=== PATIENT | female | born 1970 | race Caucasian/White ===

== ENCOUNTER → 2021-01-19 | Outpatient (CLI) | payer MEDICARE ==
[~2021-01-19] MED LIST: ADVIL200 M1 PO; ALLEGRA ALLERG180 MG PO; AZITHROMYCIN500 MG PO; COLACE 100MG C100 MG PO; COLD & FLU SEV1 EACH PO; DELSYM30 MG/5 ML PO; ELIQUIS5 MG PO; FLONASE 0.05% N16 GM; IBUPROFEN200 MG PO; KLOR-CON M2020 MEQ PO; LEVAQUIN750 MG PO; LODINE CAP 300300 MG PO; MEDROL DOSEPAK 24 MG PO; NEURONTIN 400400 MG PO; NORCO 5-325 TA1 EACH PO; NORCO 7.5-3251 EACH PO; OMNICEF 300 MG300 MG PO; PAXIL10 MG PO; PAXIL30 MG PO; PERCOCET 5-3251 EACH PO; PROTONIX40 MG PO; SUDAFED 60 MG T60 MG PO; TAMIFLU PO; TYLENOL 325MG325 MG PO; ULTRAM50 MG PO; ZOFRAN ODT 4 MG4 MG PO; ZYRTEC10 MG PO
== END ==
LOC: CT 01-04 08:30
DX: R19.8 Other specified symptoms and signs involving the digestive system and abdomen (principal); J18.1 Lobar pneumonia, unspecified organism
CPT/HCPCS: 36415; 71260; 82565; Q9967

== ENCOUNTER → 2021-05-18 | Outpatient (CLI) | payer MEDICARE ==
[~2021-05-18] MED LIST changes: +CYCLOBENZAPRINE10 MG PO; +GABAPENTIN800 MG PO; +HYDROCODON-ACE1 EAC2 PO; +HYDROCODON-ACE1 EAC6 PO; +HYGROTON TAB 2525 MG PO; +LASIX TAB 20 MG20 MG PO; +LEXAPRO20 MG PO; +LOVENOX SY40 MG/0.4 SQ; +MULTI FOR HER1 EACH PO; +PREMPRO 0.3 MG1 EACH PO; +PROAIR DIGIHAL90 MCG INH; +REMERON15 M1 PO; +VITAMIN B12 PO; +XARELTO20 MG PO; +[UNRECOGNIZED DRUG - OTHER] PO
[2021-05-18 10:30] LABS: RED BLOOD COUNT 4.11 M/UL (4.00-5.10); WHITE BLOOD COUNT 6.9 K/UL (4.5-11.0)
== END ==
LOC: OPSV2 09:00
PROVIDERS: Orthopaedic Surgery
DX: Z01.818 Encounter for other preprocedural examination (principal); S83.282A Other tear of lateral meniscus, current injury, left knee, initial encounter; X58.XXXA Exposure to other specified factors, initial encounter; R94.31 Abnormal electrocardiogram [ECG] [EKG]
CPT/HCPCS: 80048; 85025; 93005

== ENCOUNTER → 2021-05-20 | Day surgery (SDC) | payer MEDICARE, OTHER ==
[~2021-05-20] VITALS: Ht 160 cm; Wt 77.6 kg
== END | disposition home or self-care (01) ==
LOC: OR 05:43
PROVIDERS: Orthopaedic Surgery
DX: S83.282A Other tear of lateral meniscus, current injury, left knee, initial encounter (principal); M17.12 Unilateral primary osteoarthritis, left knee; M94.262 Chondromalacia, left knee; G89.29 Other chronic pain; M54.9 Dorsalgia, unspecified; F40.240 Claustrophobia; Z20.822 Contact with and (suspected) exposure to COVID-19; Z88.1 Allergy status to other antibiotic agents; Z88.8 Allergy status to other drugs, medicaments and biological substances; Z88.5 Allergy status to narcotic agent; Z87.891 Personal history of nicotine dependence; Z98.51 Tubal ligation status
CPT/HCPCS: 80048; J0171; J0690; J1100; J2001; J2250; J2405; J2704; J3010; J7120

== ENCOUNTER 2021-07-27 20:07 | Emergency (ER) | payer MEDICARE ==
[2021-07-27 21:42] LABS: HEMOGLOBIN 11.6 gm/dl (12.3-15.3); RED BLOOD COUNT 4.3 M/UL (4.00-5.10); WHITE BLOOD COUNT 7.9 K/UL (4.5-11.0)
[2021-07-27 22:10] LABS: BUN/CREATININE RATIO 29 (0-10)
== END 2021-07-28 01:50 | disposition home or self-care (01) ==
LOC: ER1 20:07
PROVIDERS: Physician Assistant
DX: M54.50 Low back pain, unspecified (principal); G89.29 Other chronic pain; Z88.8 Allergy status to other drugs, medicaments and biological substances
CPT/HCPCS: 71045; 72128; 80053; 82550; 82553; 84484; 85025; 85379; 93005; 96372; 99284; J2270; J2550

== ENCOUNTER → 2021-11-18 | Outpatient (CLI) | payer OTHER | LOC: LAB 15:18 | PROVIDERS: Internal Medicine Infectious Disease | DX: E87.6 Hypokalemia (principal); R19.7 Diarrhea, unspecified; T84.63XD Infection and inflammatory reaction due to internal fixation device of spine, subsequent encounter; L02.212 Cutaneous abscess of back [any part, except buttock and flank]; L03.312 Cellulitis of back [any part except buttock and flank] | CPT/HCPCS: 36415; 80048; 85652; 86140 ==